=== PATIENT | female | born 1950 | race Caucasian/White ===

== ENCOUNTER → 2017-05-20 | Outpatient (CLI) | payer MEDICARE | END | disposition home or self-care (01) | LOC: PCVCCLINIC 16:22 | PROVIDERS: ATTEND Internal Medicine Cardiovascular Disease | DX: I10 Essential (primary) hypertension (principal); R01.1 Cardiac murmur, unspecified; E78.00 Pure hypercholesterolemia, unspecified; R09.89 Other specified symptoms and signs involving the circulatory and respiratory systems; Z86.73 Personal history of transient ischemic attack (TIA), and cerebral infarction without residual deficits; Z79.82 Long term (current) use of aspirin; Z88.0 Allergy status to penicillin | CPT/HCPCS: 80061; 93005; G0463 ==

== ENCOUNTER → 2017-06-07 | Outpatient (CLI) | payer MEDICARE ==
--- NOTE | 2017-06-07 11:30 | PCVCIMAG ---
APPROVED REPORT Indications Bruit Risk Factors Hypertension: Hyperlipidemia Doppler Spectral Velocity Analysis PSV / EDVPSV / EDV ECA (R) 84 / 22 cm/sECA (L) 86 / 26 cm/s dICA (R) 67 / 25 cm/sdICA (L) 69 / 32 cm/s Yayo (R) 88 / 39 cm/smICA (L) 87 / 46 cm/s pICA (R) 79 / 24 cm/spICA (L) 83 / 24 cm/s Bulb (R) 78 / 26 cm/sBulb (L) 65 / 24 cm/s dCCA (R) 89 / 21 cm/sdCCA (L) 92 / 32 cm/s mCCA (R) 86 / 23 cm/smCCA (L) 82 / 22 cm/s Vert (R) 49 / 13 cm/sVert (L) 53 / 14 cm/s ICA/CCA 0.99ICA/CCA 0.95 Basic Measurements Blood Pressure: Pulses: Right Left RightLeft Brachial(Sitting) 140/77dlWt889/80mmHgTemporal Real Time B-Mode Imaging Vert. (R)AntegradeVert. (L)Antegrade Findings The right carotid bulb has moderate heterogeneous plaque. The right proximal internal carotid artery shows <40% stenosis. The right common carotid artery shows no significant stenosis. The right external carotid artery shows no significant stenosis. The left carotid bulb has mild plaque. The left proximal internal carotid artery shows <40% stenosis. The left common carotid artery shows no significant stenosis. The left external carotid artery shows no significant stenosis. Conclusion 1. Right internal carotid artery stenosis (<40%) 2. Left internal carotid artery stenosis (<40%) 3. Antegrade vertebral flow
--- NOTE | 2017-06-07 17:29 | PCVCIMAG ---
APPROVED REPORT Study performed: 06/07/2017 12:52:58 EXAM: Comprehensive 2D, Doppler, and color-flow Echocardiogram Patient Location: Echo lab Status: routine BSA: 1.91 HR: 103 bpmBP: 132/80 mmHg Rhythm: Atrial Fibrillation Other Information Study Quality: Adequate Indications Atrial Fibrillation Palpitations 2D Dimensions LVEF(%): 34.62 (>50%) IVSd: 12.50 (7-11mm) LVDd: 44.12 mm PWd: 10.10 (7-11mm)Ascending Ao: 42.10 (22-36mm) LVDs: 36.89 (25-40mm) Left Atrium: 41.65 (27-40mm) Aortic Root: 34.41 mm LV Single Plane 4CH: 35.77 % LV Single Plane 2CH: 45.34 %Reyes's LVEF: 40.56 % Biplane EF: 41.7 % Volumes Left Atrial Volume (Systole) Single Plane 4CH: 76.62 mLSingle Plane 2CH: 83.12 mL LA ESV Index: 43.00 mL/m2 Aortic Valve AoV Peak Ramirez.: 1.17 m/s AO Peak Gr.: 5.48 mmHgLVOT Max P.18 mmHg LVOT Max V: 0.89 m/s Pulmonary Valve PV Peak Ramirez.: 0.65 m/sPV Peak Gr.: 1.73 mmHg Tricuspid Valve TR Peak Ramirez.: 2.33 m/s TR Peak Gr.: 21.72 mmHg Left Ventricle The left ventricle is normal size. There is normal LV segmental wall motion. There is normal left ventricular wall thickness. Left ventricular systolic function is mildly decreased. LVEF is 40-45%. This study is not technically sufficient to allow evaluation of the LV diastolic function due to atrial fibrillation. Right Ventricle The right ventricle is normal size. The right ventricular systolic function is normal. Atria Left atrium is mild-moderately dilated. The right atrium size is normal. Aortic Valve The aortic valve is normal in structure. No aortic regurgitation is present. There is no aortic valvular stenosis. Mitral Valve The mitral valve is normal in structure. Mild mitral regurgitation. No evidence of mitral valve stenosis. Tricuspid Valve The tricuspid valve is normal in structure. Mild tricuspid regurgitation with PAP of 29 mmHg. Pulmonic Valve The pulmonary valve is normal in structure. There is no pulmonic valvular regurgitation. Great Vessels The aortic root is normal in size. IVC is normal in size and collapses with >50% inspiration Pericardium There is no pericardial effusion. <Conclusion> The left ventricle is normal size. Left ventricular systolic function is mildly decreased. LVEF is 40-45%. This study is not technically sufficient to allow evaluation of the LV diastolic function due to atrial fibrillation. The right ventricle is normal size. Left atrium is mild-moderately dilated. The right atrium size is normal. The aortic valve is normal in structure. Mild mitral regurgitation. Mild tricuspid regurgitation with PAP of 29 mmHg. There is no pericardial effusion.
== END | disposition home or self-care (01) ==
LOC: PCVCIMAG 10:56
PROVIDERS: ATTEND Internal Medicine Cardiovascular Disease
DX: I65.23 Occlusion and stenosis of bilateral carotid arteries (principal); I08.1 Rheumatic disorders of both mitral and tricuspid valves; I48.91 Unspecified atrial fibrillation; I10 Essential (primary) hypertension; E78.00 Pure hypercholesterolemia, unspecified; Z86.73 Personal history of transient ischemic attack (TIA), and cerebral infarction without residual deficits; Z79.82 Long term (current) use of aspirin; Z88.0 Allergy status to penicillin; Z79.899 Other long term (current) drug therapy
CPT/HCPCS: 93005; 93306; 93880; G0463

== ENCOUNTER → 2017-06-21 | Outpatient (CLI) | payer MEDICARE ==
[~2017-06-21] MED LIST: REGADENOSON 0.4 MG/5 ML DISP.SYRIN. IV ONE
--- NOTE | 2017-06-21 18:29 | PCVCIMAG ---
APPROVED REPORT Exam: Nuclear Stress Test Indication: Atrial Fibrillation, Dyspnea Patient Location: Out-Patient Stress Nurse: Alycia Mchugh RN, Rasheeda Arana RN ME Tech:Caro Morton [facility] Ht: 5 ft 2 in Wt: 200 lbs BSA: 1.91 m2 HR: 108 bpm BP: 140/88 mmHg BMI: 36.5 Rhythm: AFIB W/RBBB Medical History Medical History: AGE, HTN, CAD, AFIB, , Hyperlipidemia Medications: Xarelto, Toprol XL, ASA Allergies: PCN Pretest Chest Pain Characteristics: No chest pain Exercise History: Physically active Meds Held (24 hrs): Toprol XL NM EXAM: Myocardial Perfusion REST/STRESS Imaging Protocol: Rest Tc-99m/Stress Tc-99m 1 day Resting Data Rest SPECT myocardial perfusion imaging was performed in supine position 45 minutes following the intravenous injection of 13.63 mCi of Tc-99m Sestamibi. Time of rest injection: 819 Date: 06/21/2017 Administration Route: IV Administration Site: Right AC Pharmacologic Stress Pharmacologic stress test was performed by injecting Regadenoson 0.4 mg IV push followed by the intravenous injection of 43.1 mCi of Tc-99m Sestamibi. Time of stress injection: 929 Date: 06/21/2017 Administration Route: IV Administration Site: Right AC Gated Stress SPECT was performed 45 minutes after stress injection. The images were gated to evaluate regional wall motion and calculate left ventricular ejection fraction. Study Quality Study: Good Study Data Post stress, the left ventricular ejection was 51%.. SSS: 6 SRS: 0 SDS: 6 TID = 1.32. Perfusion Medium sized area of mild reversible ischemia involving the apical anterior and lateral left ventricle consistent with a left anterior descending distribution. Post stress left ventricular dilatation is nonspecific but is sometimes seen with multivessel occlusive disease. Nuclear Conclusion Medium sized area of mild reversible ischemia involving the apical anterior and lateral left ventricle consistent with a left anterior descending distribution. Post stress left ventricular dilatation is nonspecific but is sometimes seen with multivessel occlusive disease. Post stress, the left ventricular ejection was 51%.. No prior study available for comparison. Interpreted by: Regulo Decker MD Electronically Approved: 06/21/2017 11:56:54 Stress Test Details Stress Test: Pharmacologic stress testing performed using 0.4 mg of regadenoson per 5 mL given IV over 10 seconds. Reason for pharmacologic stress test: physical limitation. HR Resting HR: 108 bpmMax Heart Rate (APMHR): 152 bpm Max HR Achieved: 155 bpmTarget HR (85% APMHR): 129 bpm % of APMHR: 101 Recovery HR: 118 bpm BP Resting BP: 140/88 mmHg Max BP: 146/80 mmHg ECG Resting ECG: Atrial Fibrillation, RBBB Stress ECG: Atrial Fibrillation with RVR, RBBB, LBBB, Left axis deviation, Right axis deviation, LAFB Recovery ECG: Atrial Fibrillation, RBBB Clinical Reason for Termination: Completed protocol Stress Symptoms: Dyspnea Exercise duration: 0 min 55 sec Symptoms resolved during recovery. Stress ECG Conclusion non diagnostic <Conclusion> non diagnostic
== END | disposition home or self-care (01) ==
LOC: PCVCIMAG 08:10
PROVIDERS: ATTEND Internal Medicine Cardiovascular Disease
DX: I48.91 Unspecified atrial fibrillation (principal); R06.00 Dyspnea, unspecified; E78.5 Hyperlipidemia, unspecified; K52.9 Noninfective gastroenteritis and colitis, unspecified; I10 Essential (primary) hypertension; I51.7 Cardiomegaly; I45.10 Unspecified right bundle-branch block
CPT/HCPCS: 78452; 93017; A9500; J2785

== ENCOUNTER → 2017-08-11 | Outpatient (CLI) | payer MEDICARE ==
--- NOTE | 2017-08-11 15:42 | PCVCIMAG ---
EXAM: BILATERAL RENAL ULTRASOUND AND BILATERAL RENAL DUPLEX INDICATION: Hypertension FINDINGS: Right kidney: Length measures 10.7 cm. No hydronephrosis or extensive renal scarring. Incidental note is made of 1.9 x 2.2 x 2.0 cm benign cyst midpole. Right renal duplex: Adequate technical quality. No sonographic evidence of renal artery stenosis. The aortic to renal artery ratio is 1.6. The renal vein is patent. Left kidney: Length measures 10.2 cm. No hydronephrosis or extensive renal scarring. 1.9 x 2.0 x 2.1 cm benign cyst mid/upper pole. Left renal duplex: Adequate technical quality. No sonographic evidence of renal artery stenosis. The aortic to renal artery ratio is 2.0. The renal vein is patent. Bladder: No obvious abnormalities. IMPRESSION: No significant renal artery stenosis. No hydronephrosis bilaterally. LOC:[id number]
== END | disposition home or self-care (01) ==
LOC: PCVCIMAG 14:21
PROVIDERS: ATTEND Internal Medicine Cardiovascular Disease
DX: I10 Essential (primary) hypertension (principal); I48.91 Unspecified atrial fibrillation; I25.10 Atherosclerotic heart disease of native coronary artery without angina pectoris; E78.00 Pure hypercholesterolemia, unspecified; N28.1 Cyst of kidney, acquired; Z79.82 Long term (current) use of aspirin
CPT/HCPCS: 76770; 80061; 93005; 93975; G0463

== ENCOUNTER → 2018-07-18 | Outpatient (CLI) | payer MEDICARE | END | disposition home or self-care (01) | LOC: PCVCCLINIC 11:31 | PROVIDERS: ATTEND Internal Medicine Cardiovascular Disease | DX: I25.10 Atherosclerotic heart disease of native coronary artery without angina pectoris (principal); I10 Essential (primary) hypertension; I48.91 Unspecified atrial fibrillation; R94.31 Abnormal electrocardiogram [ECG] [EKG]; I70.1 Atherosclerosis of renal artery; E78.00 Pure hypercholesterolemia, unspecified; Z79.899 Other long term (current) drug therapy; Z88.0 Allergy status to penicillin; Z88.8 Allergy status to other drugs, medicaments and biological substances | CPT/HCPCS: 80061; 93005; G0463 ==

== ENCOUNTER → 2018-07-26 | Outpatient (CLI) | payer MEDICARE ==
--- NOTE | 2018-07-26 11:36 | PCVCIMAG ---
EXAM: BILATERAL RENAL ULTRASOUND AND BILATERAL RENAL DUPLEX INDICATION: Hypertension FINDINGS: Right kidney: Length measures 11.0 cm. No hydronephrosis or extensive renal scarring. 2.0 x 2.6 x 2.8 cm benign cyst upper pole. Right renal duplex: Adequate technical quality. No sonographic evidence of renal artery stenosis. The aortic to renal artery ratio is 1.1. The renal vein is patent. Left kidney: Length measures 11.1 cm. No hydronephrosis or extensive renal scarring. 2.3 x 2.3 x 2.5 cm benign cyst midpole. Left renal duplex: Adequate technical quality. No sonographic evidence of renal artery stenosis. The aortic to renal artery ratio is 1.3. The renal vein is patent. Bladder: No obvious abnormalities. IMPRESSION: No significant renal artery stenosis. No hydronephrosis bilaterally. LOC:[id number]
--- NOTE | 2018-07-26 14:05 | PCVCIMAG ---
APPROVED REPORT Study performed: 07/26/2018 10:29:00 Exam: Stress Echocardiogram Indication: CAD s/p PCI, A Fib, HTN, HLP Patient Location: Echo lab Stress Nurse: Alycia Mchugh RN Status: routine Ht: 5 ft 3 in HR: 100 bpm BP: 150/90 mmHg Rhythm: Atrial Fibrillation Procedure The patient underwent an Exercise Stress Test using the Jas Protocol. Blood pressure, heart rate, and EKG were monitored. An Echocardiogram was performed by gallery or museum technician in four stages in quad fashion. At peak stress, four selected images were obtained and placed side by side with resting images for comparison. Stress Test Details Stress Test: Exercise stress testing was performed using a Jas protocol. HR Resting HR: 100 bpmMax Heart Rate (APMHR): 151 bpm Max HR Achieved: 190 bpmTarget HR (85% APMHR): 128 bpm % of APMHR: 125 Recovery HR: 110 bpm HR response to stress: Normal HR response to stress BP Resting BP: 150/90 mmHg Max BP: 194/96 mmHg Recovery BP: 194/96 mmHg BP response to stress: Normal blood pressure response to stress. ECG Resting ECG: Atrial Fibrillation Stress ECG: Atrial Fibrillation ST Change: Normal Arrhythmia: occasional isolated and couplet/triplet PVCs Recovery ECG: Atrial Fibrillation Recovery ST Change: Normal Recovery Arrhythmia: PVCs Clinical Reason for Termination: Maximal effort Stress Symptoms: back pain Exercise duration: 5 min 1 sec Highest Stage Achieved: Stage 2: 2.5 mph at 12% grade. Exercise capacity: 7 METs Overall Exercise Capacity for Age: Average Scale: Sedentary Angina Score: None Pre-Stress Echo The resting Echocardiogram showed normal left ventricular contractility with an estimated Ejection Fraction of about 50-55%. Normal wall motion in all segments on baseline images. Post-Stress Echo The stress Echocardiogram showed left ventricular contractility with an estimated Ejection Fraction of about 60-65%. Normal augmentation of wall motion in all segments on post stress images. Clinical No clinical or ECG evidence for ischemia. Conclusion Clinical Response: Non-ischemic Exercise Capacity: Below Average Stress ECG Response: Non-ischemic Stress Echo Images: Non-ischemic Moderate mitral regurgitation. Ascending aorta is moderately dilated to 4.4 cm. The left ventricle is normal in size and wall thickness in both the rest and stress images. Other Information Study Quality: Adequate <Conclusion> Moderate mitral regurgitation. Ascending aorta is moderately dilated to 4.4 cm. The left ventricle is normal in size and wall thickness in both the rest and stress images.
== END | disposition home or self-care (01) ==
LOC: PCVCIMAG 09:39
PROVIDERS: ATTEND Internal Medicine Cardiovascular Disease
DX: I10 Essential (primary) hypertension (principal); I25.10 Atherosclerotic heart disease of native coronary artery without angina pectoris; E78.49 Other hyperlipidemia; I48.91 Unspecified atrial fibrillation
CPT/HCPCS: 76770; 93325; 93351; 93975

== ENCOUNTER → 2019-01-11 | Outpatient (CLI) | payer OTHER | END | disposition home or self-care (01) | LOC: PCVCCLINIC 14:00 | PROVIDERS: ATTEND Internal Medicine Cardiovascular Disease | DX: I25.10 Atherosclerotic heart disease of native coronary artery without angina pectoris (principal); I48.1 Persistent atrial fibrillation; I10 Essential (primary) hypertension; E78.00 Pure hypercholesterolemia, unspecified; E78.5 Hyperlipidemia, unspecified; R09.89 Other specified symptoms and signs involving the circulatory and respiratory systems; R94.31 Abnormal electrocardiogram [ECG] [EKG]; Z88.8 Allergy status to other drugs, medicaments and biological substances; Z79.899 Other long term (current) drug therapy; Z79.82 Long term (current) use of aspirin | CPT/HCPCS: 36415; 80061; 93005; G0463 ==